=== PATIENT | male | born 1985 | race American Indian/Alaskan Native ===

== ENCOUNTER 2017-01-13 09:13 | Emergency (ER) | payer SELFPAY ==
[2017-01-13 09:37] VITALS: BP 122/66
--- NOTE | 2017-01-13 09:50 | Emergency Department Report ---
Chief Complaint: Chest Pain Stated Complaint: CP Time Seen by Provider: 01/13/17 09:49 - HPI History of Present Illness: Patient reports that he did have his chest pain for several months. No worse today but wants to get checked out. Pain is located in the middle of his chest and feel tight and squeezing. No [id number] medication taken. Patient denies any medical problem. Denies any shortness of breath. Denies any history of heart disease. Denies any history of blood clot in his lungs or legs. Denies any swelling to his legs. Pain is 7 out of 10. History of leg surgery in 2001. No hormone therapy. No long distance travel by car or airplane recently. No radiation of pain. - ROS Review of Systems: All systems are negative unless stated in HPI above - Exam Vital Signs: Vital Signs 01/13/17 09:34 Temperature 98.4 F Pulse Rate 66 Blood Pressure 122/66 O2 Sat by Pulse 100 Oximetry Respirations at 18. Physical Exam: Gen.: This is a 31-year-old male well-nourished well-developed in no acute distress. CV: S1, S2 regular rate and rhythm. EXT: NO Swelling to legs; Lungs:CTAB, normal work of breathing MSE screening note: Focused history and physical exam performed. Due to findings the following was ordered:see MDM ED Medical Decision Making - Medical Decision Making MDM: Patient screened by provider in triage area. Appropriate protocol initiated and patient to be seen in main ED Provider ED Disposition for MSE Condition: Stable
--- NOTE | 2017-01-13 10:52 | XRay Report ---
Chest 2 views: History: Fall with chest pain. Findings: Normal cardiomediastinal silhouette the trachea is midline. No consolidation, pneumothorax or pleural effusion. Impression: No acute cardiopulmonary findings.
[2017-01-13 11:05] LABS: Basophils % (Auto) 0.6 % (0.0-1.8); Eosinophils % (Auto) 1.6 % (0.0-4.3); Hemoglobin 14.2 gm/dl (11.8-15.2); Mean Corpuscular HGB Conc 34 % (32-34); Mean Corpuscular Hemoglobin 33 pg (28-32); Mean Corpuscular Volume 96 fl (84-94); Platelet Count 205 K/mm3 (140-440); Red Blood Count 4.36 M/mm3 (3.65-5.03); Red Cell Distribution Width 12.9 % (13.2-15.2); White Blood Count 4.6 K/mm3 (4.5-11.0)
[2017-01-13 11:22] LABS: Alanine Aminotransferase 11 units/L (7-56); Albumin 4.3 g/dL (3.9-5); Albumin/Globulin Ratio 1.7 %; Alkaline Phosphatase 45 units/L (35-129); Anion Gap 15 mmol/L; BUN/Creatinine Ratio 8.75; Blood Urea Nitrogen 7 mg/dL (9-20); Calcium 9.2 mg/dL (8.4-10.2); Carbon Dioxide 28 mmol/L (22-30); Chloride 104.1 mmol/L (98-107); Glucose 74 mg/dL (75-100); Potassium 4.3 mmol/L (3.6-5.0); Sodium 143 mmol/L (137-145); Total Protein 6.8 g/dL (6.3-8.2)
== END 2017-01-13 11:00 | disposition left against medical advice (07) ==
LOC: ED 09:13
DX: R07.9 Chest pain, unspecified (principal); Z53.21 Procedure and treatment not carried out due to patient leaving prior to being seen by health care provider
CPT/HCPCS: 36415; 71020; 80053; 84484; 85025; 93005; 93010